=== PATIENT | female | born 1965 | race Asian ===

== ENCOUNTER → 2017-03-02 15:12 | Outpatient (CLI) | payer BC | END | disposition home or self-care (01) | LOC: D.MAMMO 14:30 | DX: Z12.31 Encounter for screening mammogram for malignant neoplasm of breast (principal) ==

== ENCOUNTER → 2018-04-25 13:42 | Outpatient (CLI) | payer BC ==
[~2018-04-25 13:42] MED LIST: KEFLEX500 MG PO; PERCOCET 7.5/321 TAB PO; VISTARIL50 MG PO; ZESTRIL20 MG PO
[2018-05-07 07:01] VITALS: BMI 22.7
== END | disposition home or self-care (01) ==
LOC: D.RAD 13:42
DX: M75.31 Calcific tendinitis of right shoulder (principal)

== ENCOUNTER 2018-05-07 06:10 | Day surgery (SDC) | payer BC ==
[2018-05-06 16:23] LABS: HEMATOCRIT 36.7 % (36.0-48.0); HEMOGLOBIN 12.2 g/dL (12-16); MCH 28.4 pg (26.0-34.0); MCHC 33.2 g/dL (31.0-37.0); MCV 85.5 fL (80.0-100.0); MEAN PLATELET VOLUME 9.2 fL (7.4-10.4); RBC 4.29 10x6/uL (4.00-5.40); RDW 13.5 % (11.5-14.5); WBC 8.2 10x3/uL (4.8-10.8)
[~2018-05-07] VITALS: Ht 154.9 cm; Wt 54.4 kg
--- NOTE | ~2018-05-07 | OP ---
PATIENT NAME: GAL CRUZ MEDICAL RECORD: [id number] :65 LOCATION:D.OPS ADMISSION DATE: SURGEON: MAURA MURO DO DATE OF OPERATION: 05/07/2018 PROCEDURE PERFORMED: Right shoulder arthroscopy with mini open rotator cuff repair, biceps tenodesis and a subacromial decompression with labral debridement. PREOPERATIVE DIAGNOSES: Right shoulder rotator cuff tear, SLAP tear, subacromial impingement. POSTOPERATIVE DIAGNOSES: Right shoulder rotator cuff tear, SLAP tear, subacromial impingement. INDICATIONS: Ms. Cruz is a 53-year-old female who has had right shoulder pain for quite some time. She has complained about overhead lifting and any kind of a strain of the right shoulder and weakness. She got an MRI with arthrogram, which showed a SLAP tear and the rotator cuff tear. She was informed of the risks and benefits of procedure and knowing that she could try therapy for this in order to get get it fixed. She is aware of the pre and postop protocols, aware of the risks of infection, bleeding, damage to nerve and vessels and need for further surgery as well as time off work, she consented to the procedure. SURGEON: Maura Muro DO DESCRIPTION OF PROCEDURE: The patient was given a block in the preoperative area and taken to the operative suite, given Ancef and clindamycin preoperatively. The right shoulder was prepped and draped in sterile fashion. Timeout was performed, everyone was in agreement of the correct side, site and patient and procedure. Then, the procedure began first by injecting 60 mL of normal saline into the shoulder joint itself, insufflating it, and the posterior portal was established, and with an 11-blade scalpel the trocar was entered into shoulder and viewed. The labral tear was seen immediately. The SLAP tear was from about 1 o'clock to 10 o'clock to 9 o'clock posteriorly. The anterior portal was then established first an 18-gauge spinal needle and then with the 11-blade scalpel. Then a burner was brought in and tenotomized the long head of the biceps. The rotator cuff was inspected and the articular-sided tear was seen greater than 50% through the tendon. The labrum was then debrided as well, then went to the subacromial space. A lateral portal was established with an 18-gauge spinal needle, then a 11-blade scalpel and then a burner was brought in, the acromion was cleaned off and resected the lateral portion of it. The AC joint was also inspected, I did not see any large spurs, large enough to do a distal clavicle excision. The rotator cuff was then inspected on the bursal side and was seen also to have a tear. Shaver was then used to debride the bursa and then viewed again through the trocar was then put back into the shoulder joint itself and the tear was marked with a spinal needle. An incision was then made over the lateral incision with a 15 blade scalpel. Careful dissection was made down to the rotator cuff tear and some of bursa was removed with a rongeur. Once the rotator cuff tear was exposed, a SpeedBridge was used to repair it with a medial row and lateral rows to each, biting through the rotator cuff tendon with a scorpion using the FiberTape and sutures. This was then secured with a lateral row with a very nice repair. Then, attention was drawn to the biceps tenodesis part and an incision was made just inferior to the OPERATIVE REPORT [id number] GAL CRUZ on the anterior humerus. Careful dissection was made down to the bicep tendon itself. This was brought out through that incision and whipstitched and then a single unicortical button was placed into the humerus and cinched down and then tied and then oversewn and tied down and then the excess tendon and suture was cut. All these areas were thoroughly irrigated. The portal sites anterior and posterior were closed with 4-0 Monocryl in an inverted interrupted fashion. The open repair of the rotator cuff was closed with 2-0 Vicryl first on the fascia of the deltoid and then on the skin in an inverted interrupted fashion and 4-0 Monocryl running on the skin at the bicep tendinosis site, 2-0 Vicryl was used in inverted interrupted fashion, 4-0 Monocryl ran on the skin, then Dermabond was placed over each of these sites and a Telfa and Tegaderm were placed over them. ESTIMATED BLOOD LOSS: Minimal. COMPLICATIONS: None. TRANSINT:[id number] Voice Confirmation ID: [id number] DOCUMENT ID: [id number] MAURA MURO DO at 1339 CC: [id number] DICTATION DATE: 05/07/18 1041 EYEGLASS INSPECTOR: 05/07/18 1242 [facility] [place] 05/07/18 [place] [id number] [place] [address]
[~2018-05-07 06:10] MED LIST changes: -KEFLEX500 MG PO; -PERCOCET 7.5/321 TAB PO; -VISTARIL50 MG PO
[2018-05-07 07:01] VITALS: BP 147/86; Ht 154.9 cm; Wt 54.4 kg
[2018-05-07] MEDS ORDERED: VISTARIL50 MG PO (10:33)
[2018-05-07] MEDS ORDERED: PERCOCET 7.5/321 TAB PO (10:33)
[2018-05-07] MEDS ORDERED: KEFLEX500 MG PO (10:34)
== END 2018-05-07 12:40 | disposition home or self-care (01) ==
LOC: D.OPS 06:10 → D.PAN 08:15 → D.OPS 08:15
PROVIDERS: Anesthesiology
DX: M75.111 Incomplete rotator cuff tear or rupture of right shoulder, not specified as traumatic (principal); S43.431A Superior glenoid labrum lesion of right shoulder, initial encounter; M75.41 Impingement syndrome of right shoulder; X58.XXXA Exposure to other specified factors, initial encounter; Z01.812 Encounter for preprocedural laboratory examination

== ENCOUNTER → 2018-10-17 09:34 | Outpatient (CLI) | payer BC ==
[2018-05-07 07:01] VITALS: BMI 22.7
[~2018-10-17 09:34] MED LIST changes: +KEFLEX500 MG PO; +PERCOCET 7.5/321 TAB PO; +VISTARIL50 MG PO
== END | disposition home or self-care (01) ==
LOC: D.RAD 09:34
DX: M25.511 Pain in right shoulder (principal)

== ENCOUNTER → 2019-10-17 08:33 | Outpatient (CLI) | payer OTHER ==
[2018-05-07 07:01] VITALS: BMI 22.7
== END | disposition home or self-care (01) ==
LOC: D.MRI 08:33
PROVIDERS: ATTEND Family Medicine
DX: M25.512 Pain in left shoulder (principal)

== ENCOUNTER 2019-11-21 05:39 | Day surgery (SDC) | payer OTHER ==
[2019-11-19 12:50] LABS: HEMATOCRIT 38.3 % (36.0-48.0); HEMOGLOBIN 12.4 g/dL (12-16); MCH 27.1 pg (26.0-34.0); MCHC 32.4 g/dL (31.0-37.0); MCV 83.6 fL (80.0-100.0); MEAN PLATELET VOLUME 8.9 fL (7.4-10.4); RBC 4.58 10x6/uL (4.00-5.40); WBC 6.4 10x3/uL (4.8-10.8)
[~2019-11-21] VITALS: Ht 154.9 cm; Wt 54.4 kg
[2019-11-21 06:08] VITALS: BP 152/84; Ht 154.9 cm; Wt 54.4 kg
--- NOTE | 2019-11-21 08:11 | NUR ---
PATIENT PLACED ON ANTONIO VAC PAC WITH SHOULDER BOOM, ALL AREAS PADDED AND SECURED WITH NO IMPINGEMENTS, DANICA.
--- NOTE | 2019-11-21 08:15 | NUR ---
LEFT SHOULDER BLOCK DONE IN HOLDING AREA PER ANESTHESIA, DANICA [place].
[2019-11-21] MEDS ORDERED: PERCOCET 5-3251 TAB PO (08:52)
[2019-11-21] MEDS ORDERED: VISTARIL50 MG PO (08:52)
[2019-11-21] MEDS ORDERED: ZOFRAN ODT4 MG/UDTAB PO (08:52)
--- NOTE | 2019-11-22 11:21 | OP ---
PATIENT NAME: GAL CRUZ MEDICAL RECORD: [id number] :65 LOCATION:D.OPS ADMISSION DATE: SURGEON: MAURA MURO DO DATE OF OPERATION: 11/21/2019 PROCEDURE PERFORMED: Left shoulder arthroscopy with rotator cuff tendon repair, subacromial decompression, labral debridement, distal clavicle excision and biceps tenodesis. PREOPERATIVE DIAGNOSES: Left shoulder partial thickness supraspinatus rotator cuff tear, superior labral anterior-posterior tear type 2, subacromial impingement and acromioclavicular joint arthritis. POSTOPERATIVE DIAGNOSES: Left shoulder partial thickness supraspinatus rotator cuff tear, superior labral anterior-posterior tear type 2, subacromial impingement and acromioclavicular joint arthritis. INDICATIONS: Ms. Cruz is a 54-year-old female who hurt her left shoulder while at work has been going on more than 6 months. She says it has been giving her problems that long and she was worked up by work comp and it showed the above findings. She suffered a SLAP tear, which is not noted as it was a not a arthrogram, but it did show a partial rotator cuff tendon tear of the supraspinatus, also showed some calcification in the subscapularis tendon, but it was not torn. The patient was tired of dealing with the pain as she had been through physical therapy and only made it worse. In discussing it with her and how the injury happened at work, she was lifting boxes and felt a tear in her left shoulder and it felt similar or worse to her right shoulder which I had fixed a few years ago. I informed her that it hurt her worse, if there was a partial tear on the MRI, we could fix that and put a patch over it and hopefully not have to take the whole tendon down. I would do the biceps tenodesis also and subacromial decompression of distal clavicle excision and labral debridement. She is aware of the risks including infection, bleeding, damage to nerves and vessels, need for further surgery, a retear of the tendon and continued pain and she is aware of all that and signed the consent. SURGEON: Maura Muro DO DESCRIPTION OF PROCEDURE: The patient received a block anesthesia in the preoperative area. She was taken to the operative suite, laid in the right lateral decubitus position with the left shoulder up. She was then sedated and LMA was placed. The left shoulder was then prepped and draped in sterile fashion. She was given 900 mg of clindamycin prior to starting and the time-out was performed. Everyone was in agreeance with the correct side, site, patient, the procedure. I then began by inflating the shoulder joint with 60 mL of normal saline through a posterior portal and an 18-gauge spinal needle. I then established a posterior portal with a #11 blade scalpel and trocar entered into the shoulder joint. Rest of fluid came out from removing the trocar indicating we were in the joint. Then, with the camera in, established an anterior portal with 18-gauge spinal needle and 11-blade scalpel and trocar brought in. I noticed the type 2 SLAP tear right away as there was fraying of the superior labrum. Also, I probed and broadened the subscapularis tendon to look for the large calcifications. I did not find them or anything that I could remove at that time. I then probed the supraspinatus tendon and there was a partial articular-sided tear greater than 50% noted on the articular side. The cartilage was in good repair at that time. The shoulder joint and the OPERATIVE REPORT [id number] GAL CRUZ infraspinatus looked good as well as the inferior gutter. I then switched the scope to the subacromial space, established a lateral portal with 18-gauge spinal needle and 11-blade scalpel. A trocar was brought in and then a burner, cleaned off the distal lateral acromion, did an acromioplasty as well as a thorough debridement of the bursa there as it was quite inflamed. I then through the anterior portal and previously established did a distal clavicle excision, opening up the AC joint to approximately 7 mm. The supraspinatus was then inspected as well as the subscapularis for the pieces of calcification and none were found. There was no full thickness tear in the bursal side of the supraspinatus, but it was quite thin. I then went back into the joint side and marked the partial articular-sided tear and then opened up the lateral portal, extended it and bluntly dissected down to the rotator cuff tendon with -[place]'s. I then found the twila that I made with a spinal needle and then put the large Regeneten patch on it, stapled it medially first and then put bone anchors and laterally to make a nice repair. I then irrigated this site and went to the anterior humerus. I made an incision. Careful dissection was made down to the long head of the bicep tendon. This was taken out through the incision and then a unicortical hole was placed in the humerus and the 2.9 Juggerloc bicep fixation was used to pull the tendon down to the humerus as it was weaved through the loop. I then cut the excess suture to the free needle and sutured up the tendon and tied that down, cut the excess tendon and suture that time. I then irrigated the site. Sites were then closed with a rotator cuff repair as well as the bicep tenodesis. Site was then closed with 2-0 Vicryl in an inverted interrupted fashion, 4-0 Monocryl ran on the skin and Dermabond glue. The anterior and posterior portal sites closed with 4-0 Monocryl in an inverted interrupted fashion and Dermabond glue was placed on all of them. She was then dressed with Telfa and Tegaderm. Awakened and taken to recovery room and put in a sling in stable condition. ESTIMATED BLOOD LOSS: Minimal. COMPLICATIONS: None. TRANSINT:[id number] Voice Confirmation ID: [id number] DOCUMENT ID: [id number] MAURA MURO DO at 1121 CC: [id number] DICTATION DATE: 11/21/19 0904 SECONDARY HISTORY TEACHER: 11/21/19 1318 [facility] 11/21/19 [place] [id number] [place] [id number]
== END 2019-11-21 10:27 | disposition home or self-care (01) ==
LOC: D.OPS 05:39 → D.PAN 07:00 → D.OPS 07:30
PROVIDERS: Anesthesiology; ATTEND Orthopaedic Surgery
DX: M75.102 Unspecified rotator cuff tear or rupture of left shoulder, not specified as traumatic (principal); S43.432A Superior glenoid labrum lesion of left shoulder, initial encounter; M25.812 Other specified joint disorders, left shoulder; M19.012 Primary osteoarthritis, left shoulder; X50.0XXA Overexertion from strenuous movement or load, initial encounter; Y93.9 Activity, unspecified; Y92.9 Unspecified place or not applicable; Y99.0 Civilian activity done for income or pay

== ENCOUNTER → 2020-01-08 09:00 | Outpatient (CLI) | payer BC ==
[2019-11-21 06:08] VITALS: BMI 22.7
[~2020-01-08 09:00] MED LIST changes: +PERCOCET 5-3251 TAB PO; +ZOFRAN ODT4 MG/UDTAB PO
== END | disposition home or self-care (01) ==
LOC: D.MAMMO 11-07 15:15
PROVIDERS: ATTEND Obstetrics & Gynecology
DX: Z12.31 Encounter for screening mammogram for malignant neoplasm of breast (principal)

== ENCOUNTER 2020-03-17 05:39 | Day surgery (SDC) | payer BC ==
[~2020-03-17] VITALS: Ht 154.9 cm; Wt 56.2 kg
--- NOTE | ~2020-03-17 | OP ---
PATIENT NAME: GAL CRUZ MEDICAL RECORD: [id number] :65 LOCATION:D.OPS ADMISSION DATE: SURGEON: LEIDY RICHMOND MD DATE OF OPERATION: 03/17/2020 DATE OF SERVICE: 03/17/2020 PREOPERATIVE DIAGNOSIS: Cervical dysplasia. POSTOPERATIVE DIAGNOSIS: Cervical dysplasia. PROCEDURE: LEEP. SURGEON: Leidy Richmond MD ANESTHESIOLOGIST: Dr. Lynch ANESTHESIA: General. FINDINGS: After application of strong iodine solution, area of dysplasia around the transformation zone easily visualized. Vaginal mucosa and the cervix was otherwise unremarkable. SPECIMEN REMOVED: Ectocervix and endocervix. SPECIMEN DISPOSITION: Pathology. ESTIMATED BLOOD LOSS: Minimal. FLUIDS: 400 cc of crystalloid. DRAINS: None. INDICATIONS: The patient is a 55-year-old female with persistent abnormal Pap smears and dysplastic changes on colposcopy. The patient was consented for LEEP. DESCRIPTION OF PROCEDURE: After informed consent was assured, the patient was taken to the operating room where anesthetic was obtained and the patient was positioned. After draping the patient, a speculum was introduced into the vagina and the cervix visualized. The cervix was covered with a strong iodine solution. The LEEP wire was selected and after proper adjustment of the Bovie device, the single pass removed the ectocervical and endocervical portions. A Bovie (pen) was used to cauterize the cervix to obtain hemostasis. Monsel solution was now applied. Adequate hemostasis has been achieved. Sponge, lap, needle counts were correct times 2. The patient was awakened and went to the recovery area in stable condition. TRANSINT:[id number] Voice Confirmation ID: [id number] DOCUMENT ID: [id number] OPERATIVE REPORT [id number] GAL CRUZ LEIDY RICHMOND MD CC: [id number] DICTATION DATE: 03/24/20 0847 MARKETING OPERATIONS ASSISTANT: 03/24/20 0939 [facility] 03/17/20 [place] [id number] [place] [id number]
[~2020-03-17 05:39] MED LIST changes: +LISINOPRIL20 MG PO
[2020-03-17 05:58] LABS: HEMOGLOBIN 12.2 g/dL (12-16); MCH 27.4 pg (26.0-34.0); MCHC 32.1 g/dL (31.0-37.0); MCV 85.4 fL (80.0-100.0); MEAN PLATELET VOLUME 9.2 fL (7.4-10.4); RBC 4.45 10x6/uL (4.00-5.40); RDW 13.5 % (11.5-14.5); WBC 6.1 10x3/uL (4.8-10.8)
[2020-03-17 06:51] VITALS: BP 138/81; Ht 154.9 cm; Wt 56.2 kg
[2020-03-17 07:21] LABS: HCG SERUM NEGATIVE (NEGATIVE)
--- NOTE | 2020-03-17 11:24 | NUR ---
0935-REMOVED IV WITH CATH INTACT.VSS.NO DISTRESS.DENIES PAIN. ABD SOFT NON DISTENDED. NO N/V
--- NOTE | 2020-03-17 11:26 | NUR ---
0955-PT DRESSED. REVIEWED POST OPERATIVE INSTRUCTIONS AND FOLLOW UP APPOINTMENT PT HAD SCHEDULED PRIOR TO SURGERY. ESCORTED OUT VIA W/C WITH SPOUSE AWAITING TO DRIVE HOME.
== END 2020-03-17 09:55 | disposition home or self-care (01) ==
LOC: D.OPS 05:39 → D.PAN 07:00 → D.OPS 07:00
PROVIDERS: Anesthesiology; ATTEND Obstetrics & Gynecology
DX: N87.9 Dysplasia of cervix uteri, unspecified (principal)